=== PATIENT | female | born 1990 | race African-American/Black ===

== ENCOUNTER 2023-10-31 17:13 | Emergency (ER) | payer OTHER ==
[~2023-10-31] VITALS: Ht 154.9 cm; Wt 72.7 kg
[2023-10-31] MEDS: NITROGLYCERIN 0.4 MG SL TAB SL ONE (18:00)
[2023-10-31 18:54] LABS: Basophils # (auto) 0.1 10 ^3/uL (0-0.2); Basophils % (auto) 0.8 % (0.0-2.0); Eosinophils # (auto) 0 10 ^3/uL (0-0.8); Eosinophils % (auto) 0.5 % (0.0-7.0); Hematocrit 44.9 % (36.0-46.0); Hemoglobin 15.4 g/dL (12.2-16.2); Lymphocytes # (auto) 3.2 10 ^3/uL (0.4-5.4); Lymphocytes % (auto) 48.7 % (10.0-50.0); Mean Corpuscular Hemoglobin 33.3 pg (28.0-32.0); Mean Corpuscular Hgb Conc. 34.3 g/dL (32.0-36.0); Monocytes # (auto) 0.3 10 ^3/uL (0-1.3); Monocytes % (auto) 4.5 % (0.0-12.0); Neutrophils % (auto) 45.5 % (37.0-80.0); Nucleated Red Blood Cells % 0.3 %; Red Blood Cells 4.62 10^6/uL (4.0-5.20); Red Cell Distribution Width 13.2 % (11.8-14.3); White Blood Cell 6.6 10^3/uL (4.4-10.8)
[2023-10-31 19:10] LABS: Alanine Aminotransferase 54 U/L (7-40); Albumin 4.9 g/dL (3.2-4.8); Alkaline Phosphatase 77 U/L (46-116); Anion Gap 12 (5-15); Aspartate Aminotransferase 43 U/L (13-40); BUN/Creatinine Ratio 13.9 (10.0-20.0); Blood Urea Nitrogen 11 mg/dL (9-23); Carbon Dioxide 26 mmol/L (20-30); Chloride 104 mmol/L (98-107); Glucose 104 mg/dL (74-106); Potassium 4.1 mmol/L (3.5-5.1); Sodium 142 mmol/L (136-145)
[2023-10-31 19:11] LABS: Bilirubin, Total 1.1 mg/dL (0.2-1.0); Total Protein 7.7 g/dL (5.7-8.2)
[2023-10-31 19:42] LABS: Lipase 36 U/L (12-53)
[2023-10-31] MEDS: HYDROcodone-ACET 5/325MG TAB PO ONE (20:47)
[2023-10-31] MEDS: SODIUM CHLORIDE 0.9% 1,000 ML IV ONE ×2 (20:48→23:00)
[2023-10-31] MEDS: ONDANSETRON HCL 4 MG/2 ML VIAL IV ONE (20:49)
[2023-10-31 20:50] VITALS: BP 133/97; PULSE 117; RESP 18; O2SAT 98
[2023-10-31 22:07] LABS: Urine Bacteria MANY /hpf (None Seen); Urine Blood Negative /uL (Negative); Urine Clarity Turbid (Clear); Urine Color Colorless (Yellow); Urine Mucus FEW (None Seen); Urine Protein, UAD TRACE (Negative); Urine Specific Gravity 1.014 (1.001-1.035); Urine Urobilinogen Normal (Negative); Urine WBC 5 /hpf (0 - 5); Urine pH 6.5 (5.0-9.0)
[2023-10-31 22:15] LABS: Amphetamine Screen, Urine Neg (NEGATIVE)
[2023-10-31 22:16] LABS: Barbiturate Scree,Urine Neg (NEGATIVE); Benzodiazephine Screen, Urine Neg (NEGATIVE); Cocaine Screen, Urine Neg (NEGATIVE)
[2023-10-31 22:17] LABS: Cannabinoid Screen, Urine Neg (NEGATIVE); Opiate Scree,Urine Neg (NEGATIVE); Phencyclidine Screen, Urine Neg (NEGATIVE)
[2023-10-31 22:17] LABS: CRP High Sensitivity 0.18 mg/dL (<1.0)
[2023-10-31 22:29] LABS: Lactic Acid w/Reflex 3.2 mmol/L (0.4-2.0)
[2023-10-31 22:44] LABS: Erythrocyte Sedimentation Rate 9 mm/hr (0-20)
[2023-10-31] MEDS: KETOROLAC TROMETH 30 MG/ML 1ML VIAL IV ONE (23:06)
[2023-10-31] MEDS: cefTRIAXone 1GM/50ML D5W 50 ML IV ONE (23:07)
[2023-11-01] MEDS ORDERED: ZOFR4T PO (00:09)
[2023-11-01] MEDS ORDERED: CEPH500C PO (00:09)
[2023-11-01] MEDS ORDERED: METO-281 PO (03:11)
[2023-11-01] MEDS: METOCLOPRAMIDE HCL 5MG/ml INJ 2ml VIAL IV ONE (03:28)
[2023-11-01] MEDS ORDERED: CIPR-173 PO (06:38)
[2023-11-01] MEDS ORDERED: METR-344 PO (06:38)
== END 2023-11-01 03:30 | disposition home or self-care (01) ==
LOC: ER 17:13
DX: R11.2 Nausea with vomiting, unspecified (principal); R10.2 Pelvic and perineal pain; R82.71 Bacteriuria; M79.661 Pain in right lower leg; R74.02 Elevation of levels of lactic acid dehydrogenase [LDH]; I10 Essential (primary) hypertension; F41.9 Anxiety disorder, unspecified; Z79.899 Other long term (current) drug therapy
CPT/HCPCS: 36415; 71045; 74176; 80053; 80307; 81001; 82550; 83605; 83690; 84443; 84484; 84702; 85025; 85652; 86141; 87040; 93005; 93971; 96361; 96365; 96375; 99285; J0696; J1885; J2405; J2765; J7030

== ENCOUNTER 2024-05-27 05:04 | Emergency (ER) | payer OTHER ==
[~2024-05-27] VITALS: Ht 152.4 cm; Wt 73.7 kg
[~2024-05-27 05:04] MED LIST: CEPH500C PO; CIPR-173 PO; METO-281 PO; METR-344 PO; ZOFR4T PO
--- NOTE | 2024-05-27 06:53 | ED.PDOC ---
GI ASSESSMENT HPI Comments 33 y/o F, with PMHX of HTN presents to the ED for CC of abdominal pain. Patient states, that she has been experiencing epigastric abdominal pain with associated symptoms of nausea and vomiting x2days. Patient relays on appearance of emesis to have started as clear in color which has progressed to green. Patient comments, on attending a baby shower where she consumed alcohol and Rai noodles; patient is unsure if symptoms could be related to this. Patient denies tobacco usage or illicit drugs, patient drinks occasionally. Patient denies diarrhea, headache, fever, chills, or body-aches. Chief Complaint: Abdominal Pain Time Seen by MD: 06:10 Primary Care Provider: UNKNOWN Reviewed Notes: Nurses Notes, Medications, Allergies Allergies: Coded Allergies: NO KNOWN ALLERGIES (Unverified , 10/31/23) Home Meds Active Scripts Metronidazole (Flagyl) 500 Mg Tab, 1 TAB PO TID for 5 Days, #15 TAB Prov:DEBRA BERNARDO MD 11/01/23 Ciprofloxacin Hcl (Cipro) 500 Mg Tab, 1 TAB PO BID for 4 Days, #8 TAB Prov:DEBRA BERNARDO MD 11/01/23 Metoclopramide Hcl (Reglan) 10 Mg Tab, 10 MG PO QID PRN, #20 TAB Prov:SATISH GAYLE MD 11/01/23 Ondansetron Odt 4MG Tab (ZOFRAN PO) 4 Mg Tb, 4 MG PO TID PRN, #15 TAB ODT TAB-DISSOLVE IN MOUTH, THEN SWALLOW Prov:SATISH GAYLE MD 11/01/23 Cephalexin Monohydrate (Cephalexin) 500 Mg Cap, 1 CAP PO QID for 10 Days, #40 CAP Prov:SATISH GAYLE MD 11/01/23 Information Source: Patient Mode of Arrival: Ambulatory Timing: Days Duration: Since onset Prehospital treatment: None Quality: None Vomitus: Watery Stool: Watery Severity: Mild Recent Hx of: None Pain Location: Epigastric Modifying Factors: Nothing Associated sign and symptoms: Nausea, Vomiting Past Medical History PAST MEDICAL HISTORY: HTN Surgical History: Denies all surgeries 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 Family History Family History: Reviewed,noncontributory to illness Social History Smoker: Non-Smoker Alcohol: Occasionally Drugs: Denies Drug Use Lives In: Home Constitutional: denies: chills, diaphoresis, fatigue, fever, malaise, sweats, weakness, others EENTM: denies: blurred vision, double vision, ear bleeding, ear discharge, ear drainage, ear pain, ear ringing, eye pain, eye redness, hearing loss, mouth pain, mouth swelling, nasal discharge, nose bleeding, nose congestion, nose pain, photophobia, tearing, throat pain, throat swelling, voice changes, others Respiratory: denies: cough, hemoptysis, orthopnea, SOB at rest, shortness of breath, SOB with excertion, stridor, wheezing, others Cardiovascular: denies: chest pain, dizzy spells, diaphoresis, Dyspnea on exertion, edema, irregular heart beat, left arm pain, lightheadedness, palpitations, PND, syncope, others Gastrointestinal: reports: abdominal pain, nausea, vomiting; denies: abdomen distended, blood streaked bowels, constipated, diarrhea, dysphagia, difficulty swallowing, hematemesis, melena, poor appetite, poor fluid intake, rectal bleeding, rectal pain, others Genitourinary: denies: abnormal vagina bleeding, burning, dyspareunia, dysuria, flank pain, frequency, hematuria, incontinence, pain, , vagina discharge, urgency, others Neurological: denies: dizziness, fainting, headache, left sided numbness, left sided weakness, numbness, paresthesia, pre-existing deficit, right sided numbness, right sided weakness, seizure, speech problems, tingling, tremors, weakness, others Musculoskeletal: denies: back pain, gout, joint pain, joint swelling, muscle pa in, muscle stiffness, neck pain, others Integumetry: denies: bruises, change in color, change in hair/nails, dryness, laceration, lesions, lumps, rash, wounds, others Allergic/Immunocompromised: denies: Difficulty Healing, Frequent Infections, Hives, Itching, others Hematologic/Lymphatic: denies: anemia, blood clots, easy bleeding, easy bruising, swollen glands, others Endocrine: denies: excessive hunger, excessive sweating, excessive thirst, excessive urination, flushing, intolerance to cold, intolerance to heat, unexplained weight gain, unexplained weight loss, others Psychiatric: denies: anxiety, bipolar disorder, depression, hopeless, panic disorder, schizophrenia, sleepless, suicidal, others All Other Systems: Reviewed and Negative Physical Exam General Appearance: Moderate Distress HEENT: Normal ENT Inspection, Pharynx Normal, TMs Normal Neck: Full Range of Motion, Non-Tender, Normal, Normal Inspection Respiratory: Chest Non-Tender, Lungs Clear, No Accessory Muscle Use, No Respiratory Distress, Normal Breath Sounds Cardiovascular: No Edema, No JVD, No Murmur, No Gallop, Normal Peripheral Pulses, Regular Rate/Rhythm Breast Exam: Deferred Gastrointestinal: Diffuse, No Organomegaly, No Pulsatile Mass, Normal Bowel S ounds, Soft Genitalia: Deferred Pelvic: Deferred Rectal: Deferred Extremities: No calf tenderness, Normal capillary refill, Normal inspection, Normal range of motion, Non-tender, No pedal edema Musculoskeletal : Apperance: Normal Neurologic: Alert, 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 Was a procedure done?: No GI differential Dx Differential Diagnosis: Constipation, Diverticular disease, Esophagitis, Gastritis/PUD, Gastroenteritis, Electrolyte Imbalance, Food Poisoning, Bacteri al, Viral X-Ray, Labs, Meds, VS Vital Signs Date Time Temp Pulse Resp B/P (MAP) Pulse Ox O2 Delivery O2 Flow Rate FiO2 05/27/24 08:21 70 12 140/60 05/27/24 07:51 100 17 149/108 05/27/24 07:44 98.8 100 17 149/108 (122) 96 98.8 05/27/24 05:44 96 05/27/24 05:10 98.2 121 18 146/98 (114) 98 Lab Test 05/27/24 06:46 05/27/24 06:41 Range/Units White Blood Count 4.1 L 4.4-10.8 10^3/uL Red Blood Count 4.46 4.0-5.20 10^6/uL Hemoglobin 15.0 12.2-16.2 g/dL Hematocrit 43.7 36.0-46.0 % Mean Corpuscular Volume 98.1 80.0-100.0 fL Mean Corpuscular Hemoglobin 33.7 H 28.0-32.0 pg Mean Corpuscular Hemoglobin Concent 34.3 32.0-36.0 g/dL Red Cell Distribution Width 13.7 11.8-14.3 % Platelet Count 525 H 140-450 10^3/uL Mean Platelet Volume 7.1 6.9-10.8 fL Neutrophils (%) (Auto) 43.4 37.0-80.0 % Lymphocytes (%) (Auto) 48.2 10.0-50.0 % Monocytes (%) (Auto) 6.6 0.0-12.0 % Eosinophils (%) (Auto) 0.3 0.0-7.0 % Basophils (%) (Auto) 1.5 0.0-2.0 % Neutrophils # (Auto) 1.8 1.6-8.6 10 ^3/uL Lymphocytes # (Auto) 2.0 0.4-5.4 10 ^3/uL Monocytes # (Auto) 0.3 0-1.3 10 ^3/uL Eosinophils # (Auto) 0 0-0.8 10 ^3/uL Basophils # (Auto) 0.1 0-0.2 10 ^3/uL Nucleated Red Blood Cells 0.3 % Sodium Level 141 136-145 mmol/L Potassium Level 3.7 3.5-5.1 mmol/L Chloride Level 100 98-107 mmol/L Carbon Dioxide Level 27 20-31 mmol/L Anion Gap 14 5-15 Blood Urea Nitrogen 7 L 9-23 mg/dL Creatinine 0.82 0.550-1.02 mg/dL Glomerular Filtration Rate Calc 97 >90 mL/min BUN/Creatinine Ratio 8.5 L 10.0-20.0 Serum Glucose 120 H 74-106 mg/dL Calcium Level 10.6 H 8.7-10.4 mg/dL Urine Color Light-yellow Yellow Urine Clarity Clear Clear Urine pH 7.5 5.0-9.0 Urine Specific [place] 1.013 1.001-1.035 Urine Protein Trace H Negative Urine Ketones Negative Negative Urine Blood Negative Negative /uL Urine Nitrite Negative Negative Urine Bilirubin Negative Negative Urine Urobilinogen Normal Negative mg/dL Urine Leukocyte Esterase Negative Negative /uL Urine RBC 1 0 - 4 /hpf Urine Microscopic WBC 1 0-5 /HPF Urine Squamous Epithelial Cells Few <5 /hpf Urine Bacteria Few H None Seen /hpf Urine Hyaline Casts Few 0 - 2 /lpf Urine Glucose Normal Normal mg/dL Current Medications Medications (Trade) Dose Ordered Sig/Jordan Route Start Time Stop Time Status Last Admin Sodium Chloride 1,000 ml @ 1,000 mls/hr Q1H ONCE IV 05/27/24 06:45 05/27/24 07:44 DC 05/27/24 07:50 Ondansetron HCl (Zofran) 4 mg ONCE ONCE IV 05/27/24 06:45 05/27/24 06:46 DC 05/27/24 07:50 Morphine Sulfate 2 mg ONCE ONCE IV 05/27/24 06:45 05/27/24 06:46 DC 05/27/24 07:51 [place] [id number] Ph: [phone] DIAGNOSTIC IMAGING Diagnostic Imaging Report : [id number] Signed PATIENT: GREGG PACKER ACCT: [id number] UNIT: [id number] : 1990 LOC: ER ROOM / BED: / AGE / SEX: 33 / F ADM STATUS: REG ER SERVICE [id number] ORDERING PHYSICIAN: SUNDAY OLMEDO MD PROCEDURE(s): ABPL - CT AB PEL WO CON-NO ORAL OR IV REASON: colitis ORDER NUMBER(s): [id number], ACCESSION NUMBER(s): [id number] CLINICAL INFORMATION: 33 years old, Female; colitis. TECHNIQUE: Axial CT images of the abdomen and pelvis were obtained without IV contrast. Coronal and sagittal reformatted images were obtained, reviewed, and stored. Evaluation of the parenchymal organs is limited without IV contrast. Evaluation of the bowel and mesentery is limited without oral contrast. All CT scans at this medical facility are performed using dose modulation techniques as appropriate to a performed exam including the following: Automated exposure control was utilized; adjustment of the MA and/or KV according to patient size; and use of iterative reconstruction technique. CTDIvol = 7.24, 0.07, 0.07 mGy DLP = 374.76 mGy-cm COMPARISON: CT CT AB PEL WO CON-NO ORAL OR IV on DOS: 11/01/23 FINDINGS: Lung bases: Lung bases are clear. Liver: Grossly unremarkable in its noncontrast enhanced appearance. No abnormal density or focal lesion identified. Biliary: No calcified gallstones or biliary ductal dilatation. Spleen: Unremarkable. Pancreas: Grossly unremarkable in its noncontrast enhanced appearance. Adrenal glands: Unremarkable. No mass. Kidneys: No hydronephrosis. No renal or ureteral calculi. Aorta/Vascular: No aneurysm or significant calcification. Retroperitoneum: No mass or lymphadenopathy. Bowel/mesentery: There are a few nonspecific nondilated fluid-filled small bowel loops. No small bowel obstruction. Appendix is visualized and appears unremarkable. Mild wall thickening of the hepatic flexure, transverse colon, splenic flexure, and descending colon with areas of fatty replacement, may be sequela of prior inflammation/colitis. Pelvic organs: Grossly unremarkable. Bladder: Unremarkable. No mass. Abdominal wall: No mass or hernia. Bones: No acute fracture or suspicious intraosseous lesion. IMPRESSION: 1. Nonspecific nondilated fluid-filled small bowel loops. Findings may be seen with ileus or enteritis in the appropriate clinical setting. No small bowel obstruction. 2. Areas of mural fatty replacement wall thickening in the colon as detailed above, sequelae of prior colitis, which may be infectious or inflammatory in nature. Findings are of uncertain chronicity. Correlate with clinical findings. 3. Additional findings as detailed above. ATED BY: LACI RODGERS DO DICTATED DATE/TIME: 05/27/24842 SIGNED BY: LACI RODGERS DO SIGNED DATE/TIME: 05/27/24842 CC: Patient alert. Complaining of abdominal pain nausea vomiting. Vitals stable. Answering questions. [facility] of the abdomen reveals enteritis. She does have a history of gastroenteritis. Was given prescription of Levaquin Flagyl antibiotic pain Explained to the patient. Was told to follow up with her primary care physician. Was told to come back if there is any problem. Time of 1ST Reevaluation: 06:40 Reevaluation 1ST: Unchanged Patient Education/Counseling: Diagnosis, Treatment Family Education/Counseling: No Family Present Departure 1 Departure Time of Disposition: 11:35 Impression: Primary Impression: Gastroenteritis Additional Impression: Non-specific colitis Disposition: 09 ADMITTED INPATIENT Admit to: Med Surg Condition: Guarded e-Prescriptions Ondansetron Odt 4MG Tab (ZOFRAN PO) 4 Mg Tb 4 MG PO BS for 5 Days, #5 TAB ODT TAB-DISSOLVE IN MOUTH, THEN SWALLOW Prov: SUNDAY OLMEDO MD 05/27/24 Metronidazole (Flagyl) 500 Mg Tab 1 TAB PO TID for 7 Days, #21 TAB Prov: SUNDAY OLMEDO MD 05/27/24 Levofloxacin Hemihydrate (LEVOFLOXACIN) 500 Mg Tab 500 MG PO DAILY for 7 Days, #7 MG Prov: SUNDAY OLMEDO MD 05/27/24 Discharged With: Self Critical Care Note Critical Care Time?: No Stability Stability form required: No Heart Score Heart Score: Heart Score Response (Comments) Value History N/A 0 EKG N/A 0 Age N/A 0 Risk Factors N/A 0 Troponin N/A 0 Total 0 I personally scribed for SUNDAY OLMEDO MD ([email or web address]) on 05/27/24 at 06:53. Electronically submitted by Racquel River ([email or web address]). I personally scribed for SUNDAY OLMEDO MD ([email or web address]) on 05/27/24 at 09:03. Electronically submitted by Racquel River ([email or web address]). SUNDAY OLMEDO MD May 27, 2024 06:53
[2024-05-27 07:01] LABS: Urine Bacteria FEW /hpf (None Seen); Urine Blood Negative /uL (Negative); Urine Clarity Clear (Clear); Urine Color Light-Yellow (Yellow); Urine Hyaline Cast FEW /lpf (0 - 2); Urine Protein, UAD TRACE (Negative); Urine Specific Gravity 1.013 (1.001-1.035); Urine Squamous Epithelial Cell FEW /hpf (<5); Urine Urobilinogen Normal (Negative); Urine WBC 1 /HPF (0-5); Urine pH 7.5 (5.0-9.0)
[2024-05-27 07:14] LABS: Basophils # (auto) 0.1 10 ^3/uL (0-0.2); Eosinophils # (auto) 0 10 ^3/uL (0-0.8); Platelet Count (auto) 525 10^3/uL (140-450); White Blood Cell 4.1 10^3/uL (4.4-10.8)
[2024-05-27 07:18] LABS: Basophils % (auto) 1.5 % (0.0-2.0); Eosinophils % (auto) 0.3 % (0.0-7.0); Hematocrit 43.7 % (36.0-46.0); Lymphocytes % (auto) 48.2 % (10.0-50.0); Mean Corpuscular Hemoglobin 33.7 pg (28.0-32.0); Mean Corpuscular Hgb Conc. 34.3 g/dL (32.0-36.0); Mean Corpuscular Volume 98.1 fL (80.0-100.0); Monocytes # (auto) 0.3 10 ^3/uL (0-1.3); Monocytes % (auto) 6.6 % (0.0-12.0); Neutrophils # (auto) 1.8 10 ^3/uL (1.6-8.6); Neutrophils % (auto) 43.4 % (37.0-80.0); Nucleated Red Blood Cells % 0.3 %; Red Blood Cells 4.46 10^6/uL (4.0-5.20); Red Cell Distribution Width 13.7 % (11.8-14.3)
[2024-05-27 07:25] LABS: Chloride 100 mmol/L (98-107); Potassium 3.7 mmol/L (3.5-5.1); Sodium 141 mmol/L (136-145)
[2024-05-27 07:26] LABS: Anion Gap 14 (5-15); Carbon Dioxide 27 mmol/L (20-31)
[2024-05-27 07:31] LABS: BUN/Creatinine Ratio 8.5 (10.0-20.0)
[2024-05-27 07:33] LABS: Blood Urea Nitrogen 7 mg/dL (9-23); Calcium 10.6 mg/dL (8.7-10.4); Glucose 120 mg/dL (74-106)
[2024-05-27] MEDS: SODIUM CHLORIDE 0.9% 1,000 ML IV ONE (07:50)
[2024-05-27] MEDS: ONDANSETRON HCL 4 MG/2 ML VIAL IV ONE (07:50)
[2024-05-27] MEDS: MORPHINE SULFATE INJ 2 MG/ml SYRG IV ONE (07:51)
--- NOTE | 2024-05-27 08:45 | DVH ---
CLINICAL INFORMATION: 33 years old, Female; colitis. TECHNIQUE: Axial CT images of the abdomen and pelvis were obtained without IV contrast. Coronal and sagittal reformatted images were obtained, reviewed, and stored. Evaluation of the parenchymal organs is limited without IV contrast. Evaluation of the bowel and mesentery is limited without oral contra st. All CT scans at this medical facility are performed using dose modulation techniques as appropria te to a performed exam including the following: Automated exposure control was utilized; adjustment o f the MA and/or KV according to patient size; and use of iterative reconstruction technique. CTDIvol = 7.24, 0.07, 0.07 mGy DLP = 374.76 mGy-cm COMPARISON: CT CT AB PEL WO CON-NO ORAL OR IV on DOS: 11/01/23 FINDINGS: Lung bases: Lung bases are clear. Liver: Grossly unremarkable in its noncontrast enhanced appearance. No abnormal density or focal les ion identified. Biliary: No calcified gallstones or biliary ductal dilatation. Spleen: Unremarkable. Pancreas: Grossly unremarkable in its noncontrast enhanced appearance. Adrenal glands: Unremarkable. No mass. Kidneys: No hydronephrosis. No renal or ureteral calculi. Aorta/Vascular: No aneurysm or significant calcification. Retroperitoneum: No mass or lymphadenopathy. Bowel/mesentery: There are a few nonspecific nondilated fluid-filled small bowel loops. No small edward l obstruction. Appendix is visualized and appears unremarkable. Mild wall thickening of the hepatic flexure, transverse colon, splenic flexure, and descending colon with areas of fatty replacement, may be sequela of prior inflammation/colitis. Pelvic organs: Grossly unremarkable. Bladder: Unremarkable. No mass. Abdominal wall: No mass or hernia. Bones: No acute fracture or suspicious intraosseous lesion. IMPRESSION: 1. Nonspecific nondilated fluid-filled small bowel loops. Findings may be seen with ileus or enterit is in the appropriate clinical setting. No small bowel obstruction. 2. Areas of mural fatty replacement wall thickening in the colon as detailed above, sequelae of prior colitis, which may be infectious or inflammatory in nature. Findings are of uncertain chronicity. Co rrelate with clinical findings. 3. Additional findings as detailed above.
[2024-05-27] MEDS ORDERED: LEVO500T91 PO (11:36)
[2024-05-27] MEDS ORDERED: ZOFR4T PO (11:36)
[2024-05-27] MEDS ORDERED: METR-344 PO (11:36)
[2024-05-27 11:52] VITALS: BP 152/105; PULSE 94; RESP 17; TEMP 98.3; O2SAT 98
--- NOTE | 2024-05-27 13:14 | DVHDS2 ---
New Physician D'charge PN Admitting Diagnosis Admitting Diagnosis n/v Discharge Diagnosis colitis Operations or Procedures none Reason(s) For Hospitalization Surgery Hospital Course 33 F who comes to ER for abd pain and nausea. She states she had some turkish noodles along with alcohol yesterday but isnt sure if her symptoms are related to that. She had a WBC of 4k and and nml chemistry panel. She was afebrile and her vitals were stable. Her Ct abdomen showed enteritis/colitis but NO SBO. Please refer tp the full report for details. She was given IV fluids and IV zofran along with ABx in the ER. Her condition improved and she is able to tolerate a diet. She will be discharged home on PO ABx levaquin/flagyl x10 days for enteritis/colitis and will have outpt follow up with her PCP via [employer]. Instructed to return to ER or call 911 should her symptoms worsen. Patient understands and agrees to plan of care. Treatment Plan Discharge Condition of Discharge Good Disposition Home Discharge Instructions Diet: Cardiac 2g Na,low cholest Activity: No Restrictions, As Tolerated Medications: see med sheet Follow Up Care Follow Up/Referral: pcp GI Discharge Statement: "Patient was advised to return to the ER or call 911 if any headaches, dizziness, shortness of breath, chest pain, abdominal pain, bleeding, fevers, or worsening of medical condition. Patient was counseled about treatment plan, medications, possible side effects, patientverbalized understanding. All questions were answered to the best of my ability. This discharge took greater then 30 minutes in planning, reviewing documentation, counseling the patient, and discussing with other team members." THIAGO ESPINOZA MD May 27, 2024 13:14
--- NOTE | 2024-05-28 06:41 | ECG ---
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
== END 2024-05-27 12:03 | disposition admitted as inpatient to this hospital (09) ==
LOC: ER 05:04
DX: K52.9 Noninfective gastroenteritis and colitis, unspecified (principal); I10 Essential (primary) hypertension; Z79.899 Other long term (current) drug therapy
CPT/HCPCS: 36415; 74176; 80048; 81001; 85025; 93005; 96361; 96374; 96375; 99285; J2270; J2405; J7030

== ENCOUNTER 2025-04-15 17:53 | Emergency (ER) | payer OTHER ==
[~2025-04-15] VITALS: Ht 154.9 cm; Wt 71.3 kg
[~2025-04-15 17:53] MED LIST changes: +LEVO500T91 PO
[2025-04-15 17:55] VITALS: TEMP 98.5
[2025-04-15 18:30] VITALS: BP 151/105; PULSE 117; RESP 22; O2SAT 98
[2025-04-15 19:17] LABS: Hematocrit 46.0 % (36.0-46.0); Hemoglobin 15.8 g/dL (12.2-16.2); Mean Corpuscular Hemoglobin 34.1 pg (28.0-32.0); Mean Corpuscular Volume 99.3 fL (80.0-100.0); Nucleated Red Blood Cells % 0.2 %
[2025-04-15 19:26] LABS: Sodium 139 mmol/L (136-145)
[2025-04-15 19:27] LABS: Anion Gap 15 (5-15); Calcium 9.7 mg/dL (8.7-10.4); Carbon Dioxide 26 mmol/L (20-31)
[2025-04-15 19:32] LABS: Glucose 96 mg/dL (74-106)
[2025-04-15] MEDS ORDERED: KETOROLAC TROMETH 30 MG/ML 1ML VIAL IV ONE (19:45)
[2025-04-15] MEDS ORDERED: ONDANSETRON HCL 4 MG/2 ML VIAL IV ONE (19:45)
[2025-04-15 19:49] LABS: Urine Protein, UAD Negative (Negative)
--- NOTE | 2025-04-15 19:49 | ED.PDOC ---
History of Present Illness HPI Comments 34-year-old female presents alcohol withdrawal. Significant history for anxiety, hypertension, fatty liver disease, and alcohol abuse with withdrawals. Patient endorses on developing tremors, nausea, vomiting, and upper abdominal, mid sternal chest, and throat pain, today, after taking for 4x alcohol shots, earlier, today, in an attempt to wean off her alcohol addiction. Last alcohol intake was 1 hour prior to ED arrival. Patient states on vomiting 3 times, today, with vomitus being yellow in appearance. No reported history of alcohol- induced seizures in the past. Patient denies having any bloody or bilious vomitus, aura, fatigue, shortness of breath, or further acute symptoms. REVIEW OF SYSTEMS: General: No fever, no chills, HEENT: No neck pain, no blurred vision Cardiac: No chest pain. No palpitations. Lungs: No shortness of breath, GI: No abdominal pain, no vomiting Musculoskeletal: No joint pain , no back pain Skin: No rash, no wound Neuro: No headache, no dizziness, no syncope PHYSICAL EXAM: General: Awake, alert and oriented. No acute distress by appears anxious. Skin: Skin in warm, dry and intact without rashes or lesions. HEENT: The head is normocephalic and atraumatic. Conjunctivae are clear without exudates or hemorrhage. Sclera is non-icteric. Neck: Normal range of motion. No JVD. Cardiac: Regular rate Respiratory: No signs of respiratory distress. No Stridor. Extremities: Upper and lower extremities are atraumatic in appearance without deformity. Neurological: The patient is awake, alert and oriented to person, place, and time with normal speech. Speech is clear. There is no facial asymmetry. Psychiatric: Appears anxious. Good judgement and insight. Chief Complaint: Withdrawal Time Seen by MD: 16:20 Primary Care Provider: UNKNOWN Reviewed Notes: Nurses Notes, Medications, Allergies Allergies: Coded Allergies: NO KNOWN ALLERGIES (Unverified , 10/31/23) Home Meds Active Scripts Ondansetron Odt 4MG Tab (ZOFRAN PO) 4 Mg Tb, 4 MG PO BS for 5 Days, #5 TAB ODT TAB-DISSOLVE IN MOUTH, THEN SWALLOW Prov:SUNDAY OLMEDO MD 05/27/24 Metronidazole (Flagyl) 500 Mg Tab, 1 TAB PO TID for 7 Days, #21 TAB Prov:SUNDAY OLMEDO MD 05/27/24 Levofloxacin Hemihydrate (LEVOFLOXACIN) 500 Mg Tab, 500 MG PO DAILY for 7 Days, #7 MG Prov:SUNDAY OLMEDO MD 05/27/24 Metronidazole (Flagyl) 500 Mg Tab, 1 TAB PO TID for 5 Days, #15 TAB Prov:DEBRA BERNARDO MD 11/01/23 Ciprofloxacin Hcl (Cipro) 500 Mg Tab, 1 TAB PO BID for 4 Days, #8 TAB Prov:DEBRA BERNARDO MD 11/01/23 Metoclopramide Hcl (Reglan) 10 Mg Tab, 10 MG PO QID PRN, #20 TAB Prov:SATISH GAYLE MD 11/01/23 Ondansetron Odt 4MG Tab (ZOFRAN PO) 4 Mg Tb, 4 MG PO TID PRN, #15 TAB ODT TAB-DISSOLVE IN MOUTH, THEN SWALLOW Prov:SATISH GAYLE MD 11/01/23 Cephalexin Monohydrate (Cephalexin) 500 Mg Cap, 1 CAP PO QID for 10 Days, #40 CAP Prov:SATISH GAYLE MD 11/01/23 Information Source: Patient Mode of Arrival: Ambulatory Severity: Moderate Timing: Hours Duration: Since onset Prehospital treatment: None Past Medical History PAST MEDICAL HISTORY: Anxiety, HTN, Liver (Fatty liver disease) Past Medical History (Other): History of alcohol withdrawals 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 Was a procedure done?: No Differential Dx Considerations may include: Differential diagnoses considered include: Alcohol withdrawal, substance abuse, substance dependency, delirium tremens, alcohol-induced seizures, abdominal aortic aneurysm, [place], esophageal rupture, intestinal obstruction, mesenteric ischemia, perforated viscus or solid organ rupture, CHF with hepatomegaly, pneumonia, abscess, appendicitis, biliary disease, diverticulitis, gastritis, gastroenteritis, hepatitis, hernia, inflammatory bowel disease, pancreatitis, peptic ulcer disease, urinary tract infection, ureteral colic, constipation, GERD, irritable syndrome, abdominal wall pain, nonspecific abdominal pain, herpes zoster, nephrolithiasis. [ ]Also ruptured ectopic , ovarian torsion/cyst, tubo-ovarian abscess, PID, endometriosis, mittleschmerz. X-Ray, Labs, Meds, VS Vital Signs Date Time Temp Pulse Resp B/P (MAP) Pulse Ox O2 Delivery O2 Flow Rate FiO2 04/15/25 18:30 117 22 151/105 (120) 98 04/15/25 17:55 98.5 95 20 149/111 92 98.5 Lab Test 04/15/25 19:06 Range/Units White Blood Count 4.6 4.4-10.8 10^3/uL Red Blood Count 4.63 4.0-5.20 10^6/uL Hemoglobin 15.8 12.2-16.2 g/dL Hematocrit 46.0 36.0-46.0 % Mean Corpuscular Volume 99.3 80.0-100.0 fL Mean Corpuscular Hemoglobin 34.1 H 28.0-32.0 pg Mean Corpuscular Hemoglobin Concent 34.4 32.0-36.0 g/dL Red Cell Distribution Width 13.9 11.8-14.3 % Platelet Count 363 140-450 10^3/uL Mean Platelet Volume 7.3 6.9-10.8 fL Neutrophils (%) (Auto) 52.1 37.0-80.0 % Lymphocytes (%) (Auto) 38.9 10.0-50.0 % Monocytes (%) (Auto) 7.1 0.0-12.0 % Eosinophils (%) (Auto) 0.8 0.0-7.0 % Basophils (%) (Auto) 1.1 0.0-2.0 % Neutrophils # (Auto) 2.4 1.6-8.6 10 ^3/uL Lymphocytes # (Auto) 1.8 0.4-5.4 10 ^3/uL Monocytes # (Auto) 0.3 0-1.3 10 ^3/uL Eosinophils # (Auto) 0 0-0.8 10 ^3/uL Basophils # (Auto) 0.1 0-0.2 10 ^3/uL Nucleated Red Blood Cells 0.2 % Urine Color Colorless Yellow Urine Clarity Clear Clear Urine pH 6.5 5.0-9.0 Urine Specific [place] 1.003 1.001-1.035 Urine Protein Negative Negative Urine Ketones Negative Negative Urine Blood Negative Negative /uL Urine Nitrite Negative Negative Urine Bilirubin Negative Negative Urine Urobilinogen Normal Negative mg/dL Urine Leukocyte Esterase Negative Negative /uL Urine RBC 1 0 - 4 /hpf Urine Microscopic WBC 1 0-5 /HPF Urine Squamous Epithelial Cells Few <5 /hpf Urine Bacteria Many H None Seen /hpf Urine Glucose Normal Normal mg/dL Sodium Level 139 136-145 mmol/L Potassium Level 3.3 L 3.5-5.1 mmol/L Chloride Level 98 98-107 mmol/L Carbon Dioxide Level 26 20-31 mmol/L Anion Gap 15 5-15 Blood Urea Nitrogen < 5 L 9-23 mg/dL Creatinine 0.64 0.550-1.02 mg/dL Glomerular Filtration Rate Calc 120 >90 mL/min BUN/Creatinine Ratio 7.8 L 10.0-20.0 Serum Glucose 96 74-106 mg/dL Calcium Level 9.7 8.7-10.4 mg/dL Urine Opiates Screen Neg NEGATIVE Urine Fentanyl Screen Neg NEGATIVE Urine Barbiturates Screen Neg NEGATIVE Urine Phencyclidine Screen Neg NEGATIVE Urine Amphetamines Screen Neg NEGATIVE Urine Benzodiazepines Screen Neg NEGATIVE Urine Cocaine Screen Neg NEGATIVE Urine Cannabinoids Screen Neg NEGATIVE Plasma/Serum Blood Alcohol 361.5 H <10 mg/dL Time of 1ST Reevaluation: 19:48 Reevaluation 1ST: Unchanged Patient Education/Counseling: Need For Follow Up Family Education/Counseling: No Family Present SEPSIS Sepsis Screen Date sepsis recognized/suspect: Apr 15, 2025 Time Sepsis recognized/suspect: 1757 Recent Procedure: No On Antibiotic Therapy: No Respiratory Rate >20: No Heart Rate >90: Yes Temp<36 C (96.8 F) or >38.3 C: No SBP <90 or MAP <65 mmHG: No New Acute Mental Status Change: No Is the patient on CPAP, BIPAP,: No Physician Orders Etoh Withdrawal Assessment (04/15/25 18:46) Etoh Withdrawal Assessment NOW (04/15/25 18:46) Vital Signs Date Time Temp Pulse Resp B/P (MAP) Pulse Ox O2 Delivery O2 Flow Rate FiO2 04/15/25 18:30 117 22 151/105 (120) 98 04/15/25 17:55 98.5 95 20 149/111 92 98.5 Laboratory Tests Test 04/15/25 19:06 White Blood Count 4.6 10^3/uL (4.4-10.8) Departure 1 Departure Time of Disposition: 21:18 Impression: Primary Impression: Alcohol withdrawal Disposition: LEFT AWOL/ELOPED Condition: Other Comments MDM: 34-year-old female who presented to the emergency department with anxiety, abdominal pain, chest pain. She reported being a daily drinker. Last drink was proximally hour prior to arrival to the emergency department. Discussed plan of care with the patient, advised admission for impending alcohol withdrawal. Patient eloped from the emergency department prior to completing treatment and re-evaluation The following test were independently interpreted by me: BMP, CBC, UA, blood alcohol, drug screen I reviewed and agreed with the following test results read by other providers: N /A I reviewed the following notes from the pt's past medical encounters: October 31, 2023 and May 27, 2024 encounters for nausea and vomiting and gastroenteritis, respectively Critical Care Note Critical Care Time?: No Stability Stability form required: No Heart Score Heart Score: Heart Score Response (Comments) Value History N/A 0 EKG N/A 0 Age N/A 0 Risk Factors N/A 0 Troponin N/A 0 Total 0 I personally scribed for HECTOR VASQUEZ MD ([facility]) on 04/15/25 at 19:49. Electronically submitted by Rigo Holder ([email or web address]). I personally scribed for HECTOR VASQUEZ MD ([facility] [employer]) on 04/15/25 at 21:09. Electronically submitted by Rigo Holder ([email or web address]). HECTOR VASQUEZ MD Apr 15, 2025 19:49
[2025-04-15 19:53] LABS: Amphetamine Screen, Urine Neg (NEGATIVE); BUN/Creatinine Ratio 7.8 (10.0-20.0); Barbiturate Scree,Urine Neg (NEGATIVE); Benzodiazephine Screen, Urine Neg (NEGATIVE); Blood Urea Nitrogen < 5 mg/dL (9-23); Cannabinoid Screen, Urine Neg (NEGATIVE); Chloride 98 mmol/L (98-107); Cocaine Screen, Urine Neg (NEGATIVE); Opiate Scree,Urine Neg (NEGATIVE); Phencyclidine Screen, Urine Neg (NEGATIVE); Potassium 3.3 mmol/L (3.5-5.1)
== END 2025-04-15 20:30 | disposition left against medical advice (07) ==
LOC: ER 17:53
DX: F10.239 Alcohol dependence with withdrawal, unspecified (principal); I10 Essential (primary) hypertension; F41.9 Anxiety disorder, unspecified; Z79.899 Other long term (current) drug therapy; Y90.8 Blood alcohol level of 240 mg/100 ml or more
CPT/HCPCS: 36415; 80048; 80307; 80320; 81001; 85025